=== PATIENT | female | born 1990 | race Caucasian/White ===

== ENCOUNTER 2018-01-16 08:54 | Inpatient (IN) | payer MEDICAID ==
[~2018-01-16] VITALS: Ht 162.6 cm; Wt 107.5 kg
[2018-01-16 08:56] VITALS: BP_SYST 121
[2018-01-16] MEDS ORDERED: NACL 0.9% 1,000 ML IV ONE (09:07)
[2018-01-16] MEDS ORDERED: ONDANSETRON HCL 4 MG/2 ML VIAL IVP ONE (09:15)
[2018-01-16 09:43] LABS: BILIRUBIN,URINE NEGATIVE (NEGATIVE); BLOOD, URINE NEGATIVE (NEGATIVE); CLARITY/URINE SL HAZY (CLEAR); COLOR,URINE YELLOW (YELLOW); GLUCOSE,URINE NEGATIVE (NEGATIVE); KETONES,URINE NEGATIVE (NEGATIVE); LEUKOCYTE ESTERASE ,URINE 1+ (NEGATIVE); NITRITE, URINE NEGATIVE (NEGATIVE); PH,URINE 6.5 (5.0-8.0); PROTEIN URINE TRACE (NEGATIVE)
[2018-01-16 10:01] LABS: BACTERIA,URINE FEW /HPF (None Seen); RBC,URINE 0-3 /HPF (0-3)
[2018-01-16 10:02] LABS: MUCUS,URINE None Seen /LPF (None Seen)
[2018-01-16 10:04] LABS: BASOPHILS # (AUTO) 0.1 K/uL (0.0-0.2); BASOPHILS % (AUTO) 0.4 % (0.0-2.0); CALCIUM 9.3 mg/dL (8.4-11.0); CREATININE 1.06 mg/dL (0.55-1.30); EOSINOPHILS % (AUTO) 0.3 % (0.0-4.0); HEMATOCRIT 32.3 % (36-48); LYMPHOCYTES # (AUTO) 1.7 K/uL (1.0-5.5); LYMPHOCYTES % (AUTO) 13.3 % (20.5-51.5); MEAN CORPUSCULAR HEMOGLOBIN 28 pg (27-31); MEAN CORPUSCULAR HGB CONC 34 % (32-36); MEAN CORPUSCULAR VOLUME 81 fL (79.0-98.0); MONOCYTES # (AUTO) 0.9 K/uL (0.0-1.0); NEUTROPHILS # (AUTO) 10.2 K/uL (1.8-7.7); PLATELET COUNT (AUTO) 366 K/uL (130-430); POTASSIUM 3.4 mmol/L (3.5-5.1); RED CELL DISTRIBUTION WIDTH 15.1 % (9.0-15.0); WHITE BLOOD COUNT (AUTO) 12.9 K/uL (4.8-10.8)
[2018-01-16 10:08] LABS: ALBUMIN 3.8 g/dL (3.4-4.8)
[2018-01-16] MEDS ORDERED: BISACODYL 10 MG/SUPPOSITORY RC PRN (11:00)
[2018-01-16] MEDS ORDERED: MORPHINE 4 MG/ML INJ. SYRINGE IVP PRN (11:00)
[2018-01-16] MEDS ORDERED: PANTOPRAZOLE SODIUM 40 MG/VIAL (PROTONIX) IVP ONE (11:00)
[2018-01-16] MEDS ORDERED: POTASSIUM CHLORIDE 20 MEQ TAB.PRT.SR PO PRN (11:00)
[2018-01-16] MEDS ORDERED: ONDANSETRON HCL 4 MG/2 ML VIAL IVP PRN (11:00)
[2018-01-16] MEDS ORDERED: SIMETHICONE 80 MG TAB.CHEW PO PRN (11:00)
[2018-01-16] MEDS ORDERED: LORazepam 2 MG/ML VIAL IVP PRN (11:00)
[2018-01-16] MEDS ORDERED: ACETAMINOPHEN 325 MG TABLET PO PRN (11:00)
[2018-01-16] MEDS ORDERED: ZOLPIDEM TARTRATE 5 MG TABLET PO PRN (11:00)
[2018-01-16 12:03] VITALS: BP_SYST 121
[2018-01-16] MEDS ORDERED: LEVO50TA77 PO (12:08)
[2018-01-16] MEDS ORDERED: NOR10 PO (12:08)
[2018-01-16] MEDS ORDERED: CLON0.5T4 PO (12:08)
[2018-01-16] MEDS ORDERED: MONT10TA25 PO (12:08)
[2018-01-16] MEDS ORDERED: NORG1TAB37 PO (12:08)
[2018-01-16] MEDS ORDERED: HYD10 PO (12:08)
[2018-01-16] MEDS ORDERED: LOSA1TAB3 PO (12:08)
[2018-01-16] MEDS ORDERED: IBUP-1479 PO (12:08)
[2018-01-16] MEDS ORDERED: ASA81 PO (12:08)
[2018-01-16 12:45] VITALS: BP_SYST 132
[2018-01-16] MEDS: NACL 0.9% 1,000 ML IV SCH ×2 (12:47→20:12)
[2018-01-16] MEDS: PIPERACILLIN/TAZO 3.375 GM in NS 50 ML IV SCH ×3 (13:03→23:26)
[2018-01-16 14:07] LABS: PROTHROMBIN TIME 9.8 SECS (9.5-12.5)
[2018-01-16 14:22] LABS: FREE T4 (FREE THYROXINE) 0.5 ng/dL (0.6-1.6); THYROID STIMULATING HORMONE 1.97 uIu/mL (0.34-4.82)
[2018-01-16 16:33] VITALS: BP_SYST 129
[2018-01-16] MEDS ORDERED: clonazePAM 0.5 MG TABLET PO PRN (17:30)
[2018-01-16] MEDS ORDERED: cefTRIAXone 1 GM in D5W 50 ML IV SCH (18:00)
[2018-01-16] MEDS: MONTELUKAST 10 MG TABLET PO SCH (18:16)
[2018-01-16 19:51] VITALS: BP_SYST 130
[2018-01-16] MEDS: PANTOPRAZOLE SODIUM 40 MG/VIAL (PROTONIX) IVP SCH (20:13)
[2018-01-16] MEDS: HYDROCORTISONE 10 MG TABLET (CORTEF) PO SCH (20:13)
[2018-01-16] MEDS: DOCUSATE SODIUM 100 MG CAPSULE PO SCH (20:13)
[2018-01-16] MEDS: MAGNESIUM OXIDE 400 MG TABLET PO SCH (20:13)
[2018-01-16] MEDS: LACTULOSE 20 GM/30 ML UDC PO SCH (20:15)
[2018-01-16] MEDS ORDERED: CRYSELLE PO SCH (21:00)
[2018-01-17 04:20] VITALS: BP_SYST 126
[2018-01-17] MEDS: PIPERACILLIN/TAZO 3.375 GM in NS 50 ML IV SCH ×3 (05:29→18:00)
[2018-01-17] MEDS: NACL 0.9% 1,000 ML IV SCH ×2 (05:29→14:00)
[2018-01-17 06:26] LABS: BASOPHILS # (AUTO) 0.1 K/uL (0.0-0.2); BASOPHILS % (AUTO) 0.6 % (0.0-2.0); EOSINOPHILS # (AUTO) 0.1 K/uL (0.0-0.4); EOSINOPHILS % (AUTO) 0.8 % (0.0-4.0); HEMATOCRIT 31.1 % (36-48); HEMOGLOBIN 10.6 g/dL (12.0-16.0); LYMPHOCYTES # (AUTO) 2.3 K/uL (1.0-5.5); LYMPHOCYTES % (AUTO) 18.7 % (20.5-51.5); MEAN CORPUSCULAR HEMOGLOBIN 28 pg (27-31); MEAN CORPUSCULAR HGB CONC 34 % (32-36); MEAN CORPUSCULAR VOLUME 81 fL (79.0-98.0); MONOCYTES # (AUTO) 0.6 K/uL (0.0-1.0); MONOCYTES % (AUTO) 4.6 % (1.7-9.3); NEUTROPHILS # (AUTO) 9.5 K/uL (1.8-7.7); NEUTROPHILS % (AUTO) 75.3 % (40.0-70.0); PLATELET COUNT (AUTO) 357 K/uL (130-430); RED BLOOD CELL COUNT(AUTO) 3.84 MIL/uL (4.2-6.2); RED CELL DISTRIBUTION WIDTH 14.8 % (9.0-15.0); WHITE BLOOD COUNT (AUTO) 12.6 K/uL (4.8-10.8)
[2018-01-17] MEDS ORDERED: LEVOTHYROXINE SODIUM 0.05 MG TABLET PO SCH (07:00)
[2018-01-17 07:01] LABS: CALCIUM 8.3 mg/dL (8.4-11.0); POTASSIUM 3.7 mmol/L (3.5-5.1)
[2018-01-17 07:06] LABS: ALBUMIN 3.1 g/dL (3.4-4.8); PHOSPHORUS 3.2 mg/dL (2.7-4.5); TOTAL BILIRUBIN 0.5 mg/dL (0.0-1.0)
[2018-01-17 07:50] LABS: HEMOGLOBIN A1C 5.8 % (4.8-5.6)
[2018-01-17 08:40] VITALS: BP_SYST 118
[2018-01-17] MEDS ORDERED: NORGESTREL ETHINYL ESTRADIOL PO SCH (09:00)
[2018-01-17] MEDS ORDERED: LOSARTAN/HYDROCHLOROTHIAZIDE TAB (HYZAAR 50-12.5 MG) PO SCH (09:00)
[2018-01-17] MEDS ORDERED: amLODIPine BESYLATE 10 MG TABLET PO SCH (09:00)
[2018-01-17] MEDS ORDERED: HYDROCHLOROTHIAZIDE 12.5 MG CAPSULE (HCTZ) PO SCH (09:00)
[2018-01-17] MEDS ORDERED: ASPIRIN 81 MG TAB.CHEW PO SCH (09:00)
[2018-01-17] MEDS ORDERED: LOSARTAN POTASSIUM 50 MG TABLET (COZAAR) PO SCH (09:00)
[2018-01-17] MEDS ORDERED: MULTIVITS,CA,MINERALS/IRON/FA 1 TABLET PO SCH (09:00)
[2018-01-17 12:22] VITALS: BP_SYST 133
[2018-01-17] MEDS: PANTOPRAZOLE SODIUM 40 MG/VIAL (PROTONIX) IVP SCH (13:58)
[2018-01-17] MEDS: LACTULOSE 20 GM/30 ML UDC PO SCH (13:58)
[2018-01-17] MEDS: HYDROCORTISONE 10 MG TABLET (CORTEF) PO SCH ×2 (13:59→15:00)
[2018-01-17] MEDS: MAGNESIUM OXIDE 400 MG TABLET PO SCH (14:00)
[2018-01-17] MEDS: DOCUSATE SODIUM 100 MG CAPSULE PO SCH (14:00)
[2018-01-17] MEDS ORDERED: IBUP-1479 PO (16:12)
[2018-01-17] MEDS ORDERED: LACT10SO66 PO (16:12)
[2018-01-17 17:18] VITALS: BP_SYST 126
[2018-01-17 17:45] VITALS: BP_SYST 133
[2018-01-17] MEDS: MONTELUKAST 10 MG TABLET PO SCH (18:00)
== END 2018-01-17 18:05 | disposition short-term general hospital (02) ==
LOC: SED 08:54 → SMU 10:51
PROVIDERS: ADMIT Family Medicine; ATTEND Family Medicine
DX: K80.42 Calculus of bile duct with acute cholecystitis without obstruction (principal); N17.0 Acute kidney failure with tubular necrosis; E44.1 Mild protein-calorie malnutrition; E03.9 Hypothyroidism, unspecified; F84.0 Autistic disorder; E87.6 Hypokalemia; R73.03 Prediabetes; H54.7 Unspecified visual loss; I10 Essential (primary) hypertension; D63.8 Anemia in other chronic diseases classified elsewhere; Z68.41 Body mass index [BMI] 40.0-44.9, adult; Z82.49 Family history of ischemic heart disease and other diseases of the circulatory system
CPT/HCPCS: 36415; 71045; 76700-TC; 78226; 80053; 80061; 81000-TC; 82150-TC; 83036; 83690-TC; 83735-TC; 83880; 84100-TC; 84436; 84439; 84443-TC; 84479; 85025; 85610-TC; 85730-TC; 86886; 86900; 86901; 87086; 96374; 96375; 99285; A9537; C9113; J0696; J2060; J2405; J2543; J7030; J7060